=== PATIENT | female | born 1995 | race Caucasian/White ===

== ENCOUNTER 2016-08-03 20:46 | Emergency (ER) | payer OTHER ==
[2016-08-03 21:00] VITALS: BP 133/82; PULSE 86; RESP 18; TEMP 98
--- NOTE | 2016-08-03 21:18 | ED ---
General Adult HPI - General Chief complaint: Extremity Injury, Upper Stated complaint: Shoulder Pain Time Seen by Provider: 08/03/16 21:03 Source: patient, RN notes reviewed Mode of arrival: ambulatory Limitations: no limitations - History of Present Illness Initial comments: This is a 20-year-old female who presents with left shoulder pain since last night. Patient states she has a history of a humeral head fracture approximately 8 months ago. Patient states she was supposed to have surgery on this shoulder but she never did. Patient states she has limited range of motion to the left upper extremity ever since this injury. Patient reports increased pain to the left shoulder after picking up her 4-year-old daughter, who is approximately 30 pounds, last night. Patient states throughout the day she has noticed tingling to the left shoulder and some pain in the left clavicle. Patient also feels a pinching sensation in the left armpit. Patient denies any numbness/tingling or weakness to the left hand or forearm. Patient denies any neck pain. Patient denies any recent fever, chills, shortness breath , chest pain, abdominal pain, nausea/vomiting/diarrhea, back pain, hematuria, headache, or visual changes, or any other complaints. - Related Data Home Medications Medication Instructions Recorded Confirmed Multivitamins, Thera [Multivitamin] 1 tab PO DAILY 12/30/15 08/03/16 Albuterol Inhaler [Ventolin Hfa 2 puff INHALATION RT-Q6H PRN 08/03/16 08/03/16 Inhaler] Allergies Allergy/AdvReac Type Severity Reaction Status Date / Time adhesive tape Allergy Rash/Hives Verified 08/03/16 21:17 Review of Systems ROS Statement: Those systems with pertinent positive or pertinent negative responses have been documented in the HPI. ROS Other: All systems not noted in ROS Statement are negative. Past Medical History Past Medical History: No Reported History Additional Past Medical History / Comment(s): lump in right breast History of Any Multi-Drug Resistant Organisms: None Reported Past Surgical History: Orthopedic Surgery Additional Past Surgical History / Comment(s): Right growth plate, double lumpectomy removed Additional Past Anesthesia/Blood Transfusion Reaction / Comment(s): STATES HE HAD HYPOTENSION AFTER HER EPIDURAL, WHEN SHE DELIVERED HER DAUGHTER. Past Psychological History: Anxiety Smoking Status: Current every day smoker Past Alcohol Use History: None Reported Additional Past Alcohol Use History / Comment(s): SMOKED FOR: 4-5YR. PPD: .5 Past Drug Use History: None Reported - Past Family History Father Family Medical History: Cancer Additional Family Medical History / Comment(s): LIVER CANCER. Mother Family Medical History: Thyroid Disorder General Exam - General Exam Comments Initial Comments: General: The patient is awake and alert, in no distress, and does not appear acutely ill. Neck: There is no posterior cervical midline tenderness. The neck is supple, there is no tenderness or JVD. Cardiovascular: There is a regular rate and rhythm. No murmur, rub or gallop is appreciated. Respiratory: Lungs are clear to auscultation, respirations are non-labored, breath sounds are equal. No wheezes, stridor, rales, or rhonchi. Musculoskeletal: There is mild tenderness to palpation to the humeral end of the clavicle. Patient has tenderness to the axillary area with no swelling, ecchymosis or lumps felt. Patient states she can feel pressure to the left proximal upper extremity but does not feel any pain with palpation. Sensation intact. Patient's brachial and radial pulses are 2+ bilaterally and capillary refill is normal at less than 2 seconds. Patient has limited range of motion of the left upper extremity to approximately 90, but patient states this is chronic for her. Patient's strength is 5/5. Patient has normal coloring to bilateral upper extremities. Neurological: A&O x 3. CN II-XII intact, There are no obvious motor or sensory deficits. Coordination appears grossly intact. Speech is normal. Skin: Skin is warm and dry and no rashes or lesions are noted. Psychiatric: Normal mood and affect. Limitations: no limitations Course Vital Signs 08/03/16 20:57 Temperature 98.0 F Pulse Rate 86 Respiratory 18 Rate Blood Pressure 133/82 O2 Sat by Pulse 100 Oximetry Medical Decision Making - Medical Decision Making This is a 20-year-old female with complaints of left shoulder pain after lifting her daughter. On physical exam there is mild tenderness to palpation to the humeral end of the clavicle. Patient has tenderness to the axillary area with no swelling, ecchymosis or lumps felt. Patient states she can feel pressure to the left proximal upper extremity but does not feel any pain with palpation. Sensation intact. Patient's brachial and radial pulses are 2+ bilaterally and capillary refill is normal at less than 2 seconds. Patient has limited range of motion of the left upper extremity to approximately 90, but patient states this is chronic for her. Patient's strength is 5/5. Patient has normal coloring to bilateral upper extremities. An x-ray of the left shoulder was done and reviewed showing: Negative left shoulder exam. No change. Reported by Dr. Carrillo. I discussed the results with patient. Discussed that she may have strained her left shoulder when she picked up her daughter. Discussed rest, ice and Tylenol and/or Motrin for pain. Patient states she has a follow-up with the orthopedic doctor coming up. I discussed return parameters and that the patient should follow-up with her primary care physician in one to 2 days or return to the [facility] for any worsening symptoms or for any further concerns. Patient was receptive to this plan and patient will be discharged home. I discussed this case the attending physician Dr. Verdin who agrees with plan as stated above. Disposition Clinical Impression: Left shoulder strain Disposition: HOME SELF-CARE Condition: Good Instructions: Shoulder Pain (ED) Additional Instructions: Please rest, ice, elevate and use Tylenol and/or Motrin for pain. Please avoid lifting anything that causes increased pain in the left shoulder until symptoms improve. Please follow-up with family doctor in the next 2 days of symptoms have not improved. Please return to emergency room if the symptoms increase or worsen or for any other concerns. Referrals: Jose Duke MD [Primary Care Provider] - 1-2 days Time of Disposition: 21:50
--- NOTE | 2016-08-03 21:47 | XR ---
EXAMINATION TYPE: XR shoulder complete LT DATE OF EXAM: 08/03/2016 9:21 PM COMPARISON: 11/18/2015 HISTORY: Shoulder pain TECHNIQUE: 3 views FINDINGS: I see no fracture nor dislocation. Glenohumeral joint is intact. There are no pathologic ca lcifications. IMPRESSION: Negative left shoulder exam. No change.
== END 2016-08-03 22:01 | disposition home or self-care (01) ==
LOC: EC 20:46
DX: S46.912A Strain of unspecified muscle, fascia and tendon at shoulder and upper arm level, left arm, initial encounter (principal); X58.XXXA Exposure to other specified factors, initial encounter; Z91.048 Other nonmedicinal substance allergy status; Z87.81 Personal history of (healed) traumatic fracture; F17.200 Nicotine dependence, unspecified, uncomplicated
CPT/HCPCS: 99283

== ENCOUNTER 2017-06-11 16:03 | Emergency (ER) | payer OTHER ==
[2017-06-11 16:08] VITALS: RESP 18
[2017-06-11 16:38] LABS: Basophils % (A) 1 %; Eosinophils % (A) 1 %; HCT 42.7 % (34.0-46.0); HGB 14.1 gm/dL (11.4-16.0); Lymphocytes # (A) 1.6 k/uL (1.0-4.8); Lymphocytes % (A) 24 %; MCHC 32.9 g/dL (31.0-37.0); Mean Platelet Volume 6.8; Monocytes # (A) 0.3 k/uL (0-1.0); Monocytes % (A) 5 %; Neutrophils # (A) 4.8 k/uL (1.3-7.7); Neutrophils % (A) 69 %; Platelet Count 346 k/uL (150-450); RBC 4.55 m/uL (3.80-5.40); RDW 12.5 % (11.5-15.5); WBC 6.9 k/uL (3.8-10.6)
[2017-06-11 16:50] LABS: Anion Gap 11 mmol/L; Blood Urea Nitrogen 12 mg/dL (7-17); Calcium 9.6 mg/dL (8.4-10.2); Carbon Dioxide 26 mmol/L (22-30); Chloride 105 mmol/L (98-107); Glucose 96 mg/dL (74-99); Potassium 3.8 mmol/L (3.5-5.1); Sodium 142 mmol/L (137-145)
[2017-06-11 17:17] LABS: HCG,Quantitative Serum 2.9 mIU/mL
[2017-06-11 17:18] VITALS: BP 110/65; PULSE 71; TEMP 98.4
--- NOTE | 2017-06-11 17:20 | US ---
EXAMINATION TYPE: US OB <=14 wks transvag DATE OF EXAM: 06/11/2017 COMPARISON: NONE CLINICAL HISTORY: Pain. bleeding with EXAM PERFORMED: Transvaginal (TV) and Transabdominal (TA) EXAM MEASUREMENTS: GESTATIONAL AGE / DATING Physician Established: Not yet established Dates by LMP: ( 6 weeks/6 days) EDC: 01/29/2018 Dates by First Scan: No previous this is first scan Dates by Current Scan for: No IUP seen at this time MATERNAL ANATOMY Uterus: 8.5 x 4.0 x 5.6 cm Right Ovary: 2.8 x 1.4 x 3.2 cm Left Ovary: 2.5 x 1.7 x 3.1 cm Post CDS / Adnexa: wnl Presence of free fluid: none GESTATION / SURVEY CRL: not identified MSD: not identified Yolk Sac (normal less than 6mm): not identified Date of LMP: 04/24/2017 Beta HcG (if available): not available at time of exam patient is bleeding heavily, no sign of an IUP, no decidual reaction appreciated, probable miscarriag e. IMPRESSION: The uterus is empty. No evidence of ectopic . No adnexal mass.
--- NOTE | 2017-06-11 17:34 | ED ---
Female Urogenital HPI - General Chief complaint: Vaginal Bleeding Stated complaint: Bleeding and Time Seen by Provider: 06/11/17 16:17 Source: patient, RN notes reviewed Mode of arrival: ambulatory Limitations: no limitations - History of Present Illness Initial comments: 21-year-old female presented emergency department dept for vaginal bleeding in early . Patient states she found out she was last week. She did go to [facility] on Sunday with his told that her ECG level was low. Patient does have ultrasound shoulder much at the time. She started having some bleeding last night and has worsened today. She states it feels like normal menstrual cycle. She denies any severe abdominal pain denies fever, chills. Patient is A0. 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 Patient offers no other complaints. Last Menstrual Period: 04/24/17 - Related Data Home Medications Medication Instructions Recorded Confirmed Pnv,Calcium 72/Iron/Folic Acid 1 tab PO DAILY 06/11/17 06/11/17 [ Plus Tablet] Allergies Allergy/AdvReac Type Severity Reaction Status Date / Time adhesive tape Allergy Rash/Hives Verified 06/11/17 16:13 Review of Systems ROS Statement: Those systems with pertinent positive or pertinent negative responses have been documented in the HPI. ROS Other: All systems not noted in ROS Statement are negative. Past Medical History Past Medical History: No Reported History Additional Past Medical History / Comment(s): lump in right breast History of Any Multi-Drug Resistant Organisms: None Reported Past Surgical History: Orthopedic Surgery Additional Past Surgical History / Comment(s): Right growth plate, double lumpectomy removed Additional Past Anesthesia/Blood Transfusion Reaction / Comment(s): STATES HE HAD HYPOTENSION AFTER HER EPIDURAL, WHEN SHE DELIVERED HER DAUGHTER. Past Psychological History: Anxiety Smoking Status: Current every day smoker Past Alcohol Use History: None Reported Past Drug Use History: None Reported - Past Family History Father Family Medical History: Cancer Additional Family Medical History / Comment(s): LIVER CANCER. Mother Family Medical History: Thyroid Disorder General Exam Limitations: no limitations General appearance: alert, in no apparent distress Head exam: Present: atraumatic, normocephalic, normal inspection Respiratory exam: Present: normal lung sounds bilaterally. Absent: respiratory distress, wheezes, rales, rhonchi, stridor Cardiovascular Exam: Present: regular rate, normal rhythm, normal heart sounds. Absent: systolic murmur, diastolic murmur, rubs, gallop, clicks GI/Abdominal exam: Present: soft, normal bowel sounds. Absent: distended, tenderness, guarding, rebound, rigid Course Vital Signs 06/11/17 06/11/17 16:05 17:17 Temperature 97.1 F L 98.4 F Pulse Rate 81 71 Respiratory 18 18 Rate Blood Pressure 126/78 110/65 O2 Sat by Pulse 100 99 Oximetry Medical Decision Making - Medical Decision Making 21-year-old female presented for vaginal bleeding in early . Patient appears to be having a miscarriage. Patient did find her ECG was only 18 on Sunday and is currently 2.9. I did explain that hCG levels not rising appropriately that she is having bleeding and ultrasound is negative at this time. She is to follow-up with her PCP or JOURNEY[employer] PRESS OPERATOR for recheck and return for any worsening symptoms. - Lab Data Result diagrams: 06/11/17 16:22 06/11/17 16:22 Lab Results 06/11/17 06/11/17 06/11/17 Range/Units 16:22 16:22 16:22 WBC 6.9 (3.8-10.6) k/uL RBC 4.55 (3.80-5.40) m/uL Hgb 14.1 (11.4-16.0) gm/dL Hct 42.7 (34.0-46.0) % MCV 94.0 (80.0-100.0) fL MCH 31.0 (25.0-35.0) pg MCHC 32.9 (31.0-37.0) g/dL RDW 12.5 (11.5-15.5) % Plt Count 346 (150-450) k/uL Neutrophils % 69 % Lymphocytes % 24 % Monocytes % 5 % Eosinophils % 1 % Basophils % 1 % Neutrophils # 4.8 (1.3-7.7) k/uL Lymphocytes # 1.6 (1.0-4.8) k/uL Monocytes # 0.3 (0-1.0) k/uL Eosinophils # 0.0 (0-0.7) k/uL Basophils # 0.0 (0-0.2) k/uL Sodium 142 (137-145) mmol/L Potassium 3.8 (3.5-5.1) mmol/L Chloride 105 (98-107) mmol/L Carbon Dioxide 26 (22-30) mmol/L Anion Gap 11 mmol/L BUN 12 (7-17) mg/dL Creatinine 0.60 (0.52-1.04) mg/dL Est GFR (MDRD) Af Amer >60 (>60 ml/min/1.73 sqM) Est GFR (MDRD) Non-Af >60 (>60 ml/min/1.73 sqM) Glucose 96 (74-99) mg/dL Calcium 9.6 (8.4-10.2) mg/dL HCG, Quant 2.9 mIU/mL Blood Type O Positive Blood Type Recheck O Pos Disposition Clinical Impression: Miscarriage Disposition: HOME SELF-CARE Condition: Stable Instructions: Miscarriage (ED) Additional Instructions: Please return to the Emergency Department if symptoms worsen or any other concerns. Referrals: Jose Duke MD [Primary Care Provider] - 1-2 days Time of Disposition: 17:34
== END 2017-06-11 17:39 | disposition home or self-care (01) ==
LOC: EC 16:03
DX: O03.9 Complete or unspecified spontaneous abortion without complication (principal); O99.330 Smoking (tobacco) complicating pregnancy, unspecified trimester; F17.200 Nicotine dependence, unspecified, uncomplicated; Z79.899 Other long term (current) drug therapy; Z91.09 Other allergy status, other than to drugs and biological substances; Z3A.00 Weeks of gestation of pregnancy not specified
CPT/HCPCS: 36415; 76801; 76817; 80048; 84702; 85025; 86900; 86901; 99284

== ENCOUNTER 2017-10-05 22:42 | Emergency (ER) | payer OTHER ==
[2017-10-05 22:52] VITALS: RESP 18
--- NOTE | 2017-10-06 00:31 | ED ---
Female Urogenital HPI - General Chief complaint: Vaginal Bleeding Stated complaint: Vaginal Bleeding 16wks Preg Time Seen by Provider: 10/05/17 23:55 Source: patient, RN notes reviewed Mode of arrival: ambulatory Limitations: no limitations - History of Present Illness Initial comments: This is a 22-year-old female, currently 16 weeks who presents to the emergency department with chief complaint of cramping and vaginal bleeding. Patient states that she sees Dr. Marily Menard as her TIPPLE SUPERVISOR. She states that she does take Dunn, weekly injection to prevent early labor. She states that today she developed some low back cramping and vaginal bleeding. She states that the bleeding has been consistent for the past 2 hours. She does state that she had an ultrasound performed at 10 weeks. She denies any significant abdominal pain, nausea or vomiting, diarrhea or constipation. She denies fevers or chills. She denies dysuria or hematuria. She does state that 1 week before getting she had a miscarriage. She states that at that time she was told her blood type is O+. Last Menstrual Period: 06/10/17 - Related Data Home Medications Medication Instructions Recorded Confirmed Pnv,Calcium 72/Iron/Folic Acid 1 tab PO DAILY 06/11/17 08/23/17 [ Plus Tablet] Previous Rx's Medication Instructions Recorded Cephalexin [Keflex] 500 mg PO Q12HR #20 cap 10/06/17 Allergies Allergy/AdvReac Type Severity Reaction Status Date / Time adhesive tape Allergy Rash/Hives Verified 10/05/17 22:52 Review of Systems ROS Statement: Those systems with pertinent positive or pertinent negative responses have been documented in the HPI. ROS Other: All systems not noted in ROS Statement are negative. Past Medical History Past Medical History: No Reported History Additional Past Medical History / Comment(s): lump in right breast, UTI, hypotension History of Any Multi-Drug Resistant Organisms: None Reported Past Surgical History: Orthopedic Surgery Additional Past Surgical History / Comment(s): Right growth plate, double lumpectomy removed Additional Past Anesthesia/Blood Transfusion Reaction / Comment(s): STATES HE HAD HYPOTENSION AFTER HER EPIDURAL, WHEN SHE DELIVERED HER DAUGHTER. Past Psychological History: Anxiety Smoking Status: Former smoker Past Alcohol Use History: None Reported Past Drug Use History: None Reported - Past Family History Father Family Medical History: Cancer Additional Family Medical History / Comment(s): LIVER CANCER. Mother Family Medical History: Thyroid Disorder General Exam - General Exam Comments Initial Comments: General: Awake and alert, well-developed; in no apparent distress. HEENT: Head atraumatic, normocephalic. Pupils are equal, round and reactive to light. Extraocular movements intact. Oropharynx moist without erythema or exudate. Neck: Supple. Normal ROM. Cardiovascular: Regular rate and rhythm. No murmurs, rubs or gallops. Chest symmetrical. Respiratory: Lungs clear to auscultation bilaterally. No wheezes, rales or rhonchi. Normal respiratory effort with no use of accessory muscles. Abdomen: Soft, non-tender, non-distended. No rigidity, rebound or guarding. Normal bowel sounds in all 4 quadrants. Musculoskeletal: Normal ROM, no tenderness bilateral upper and lower extremities. Ambulating normally. Skin: [place], warm and dry without rashes or lesions. Neurological: Alert and oriented x3. CN II-XII grossly intact. Speech is fluent and answers are appropriate. No focal neuro deficits. Psychiatric: Normal mood and affect. No overt signs of depression or anxiety noted. Limitations: no limitations Course Vital Signs 10/05/17 10/06/17 22:50 00:52 Temperature 100.3 F H 97.9 F Pulse Rate 120 H 89 Respiratory 18 Rate Blood Pressure 115/72 105/63 O2 Sat by Pulse 100 99 Oximetry Medical Decision Making - Medical Decision Making This is a 22-year-old female who presented to the emergency department with chief complaint of vaginal bleeding. Patient currently 16 weeks . There was record of an ultrasound performed on August 23 that revealed a viable intrauterine . heart tones were performed today and were between 136 and 150s. CBC was unremarkable. CMP revealed slightly elevated AST and ALT at 126 and 165 respectively. Recommended patient to follow up with her primary care provider to have CMP rechecked. Patient's blood type is O+ so did not need to receive a dose of RhoGAM. UA revealed trace blood, positive nitrates, large leukocyte esterase and 92 white blood cells. Patient will be treated with Keflex for a urinary tract infection. Serum hCG was 152,324. Vital signs are stable and patient is in no acute distress. She will be discharged home at this time. Recommended repeat serum hCG in 48 hours. Lab slip is provided. She is to follow up with her TIPPLE SUPERVISOR within 1-2 days. She is in agreement with plan and voices understanding. All questions were answered. - Lab Data Result diagrams: 10/06/17 00:23 10/06/17 00:23 Lab Results 10/06/17 10/06/17 10/06/17 Range/Units 00:23 00:23 00:23 WBC 8.9 (3.8-10.6) k/uL RBC 3.82 (3.80-5.40) m/uL Hgb 11.7 (11.4-16.0) gm/dL Hct 34.7 (34.0-46.0) % MCV 90.7 (80.0-100.0) fL MCH 30.7 (25.0-35.0) pg MCHC 33.9 (31.0-37.0) g/dL RDW 13.1 (11.5-15.5) % Plt Count 279 (150-450) k/uL Neutrophils % (Manual) 59 % Lymphocytes % (Manual) 33 % Monocytes % (Manual) 8 % Neutrophils # (Manual) 5.25 (1.3-7.7) k/uL Lymphocytes # (Manual) 2.94 (1.0-4.8) k/uL Monocytes # (Manual) 0.71 (0-1.0) k/uL Nucleated RBCs 0 (0-0) /100 WBC Manual Slide Review Performed Reactive Lymphocytes Present Sodium 136 L (137-145) mmol/L Potassium 4.2 (3.5-5.1) mmol/L Chloride 103 (98-107) mmol/L Carbon Dioxide 22 (22-30) mmol/L Anion Gap 11 mmol/L BUN 11 (7-17) mg/dL Creatinine 0.60 (0.52-1.04) mg/dL Est GFR (CKD-EPI)AfAm >90 (>60 ml/min/1.73 sqM) Est GFR (CKD-EPI)NonAf >90 (>60 ml/min/1.73 sqM) Glucose 78 (74-99) mg/dL Calcium 8.9 (8.4-10.2) mg/dL Total Bilirubin 0.5 (0.2-1.3) mg/dL AST 126 H (14-36) U/L ALT 165 H (9-52) U/L Alkaline Phosphatase 98 (38-126) U/L Total Protein 6.3 (6.3-8.2) g/dL Albumin 3.6 (3.5-5.0) g/dL Urine Color Urine Appearance (Clear) Urine pH (5.0-8.0) Ur Specific Vanderbilt (1.001-1.035) Urine Protein (Negative) Urine Glucose (UA) (Negative) Urine Ketones (Negative) Urine Blood (Negative) Urine Nitrite (Negative) Urine Bilirubin (Negative) Urine Urobilinogen (<2.0) mg/dL Ur Leukocyte Esterase (Negative) Urine WBC (0-5) /hpf Ur Squamous Epith Cells (0-4) /hpf Urine Mucus (None) /hpf Blood Type O Positive Blood Type Recheck No 10/06/17 Range/Units 00:23 WBC (3.8-10.6) k/uL RBC (3.80-5.40) m/uL Hgb (11.4-16.0) gm/dL Hct (34.0-46.0) % MCV (80.0-100.0) fL MCH (25.0-35.0) pg MCHC (31.0-37.0) g/dL RDW (11.5-15.5) % Plt Count (150-450) k/uL Neutrophils % (Manual) % Lymphocytes % (Manual) % Monocytes % (Manual) % Neutrophils # (Manual) (1.3-7.7) k/uL Lymphocytes # (Manual) (1.0-4.8) k/uL Monocytes # (Manual) (0-1.0) k/uL Nucleated RBCs (0-0) /100 WBC Manual Slide Review Reactive Lymphocytes Sodium (137-145) mmol/L Potassium (3.5-5.1) mmol/L Chloride (98-107) mmol/L Carbon Dioxide (22-30) mmol/L Anion Gap mmol/L BUN (7-17) mg/dL Creatinine (0.52-1.04) mg/dL Est GFR (CKD-EPI)AfAm (>60 ml/min/1.73 sqM) Est GFR (CKD-EPI)NonAf (>60 ml/min/1.73 sqM) Glucose (74-99) mg/dL Calcium (8.4-10.2) mg/dL Total Bilirubin (0.2-1.3) mg/dL AST (14-36) U/L ALT (9-52) U/L Alkaline Phosphatase (38-126) U/L Total Protein (6.3-8.2) g/dL Albumin (3.5-5.0) g/dL Urine Color Yellow Urine Appearance Cloudy H (Clear) Urine pH 6.0 (5.0-8.0) Ur Specific Vanderbilt 1.013 (1.001-1.035) Urine Protein Negative (Negative) Urine Glucose (UA) Negative (Negative) Urine Ketones Negative (Negative) Urine Blood Trace H (Negative) Urine Nitrite Positive H (Negative) Urine Bilirubin Negative (Negative) Urine Urobilinogen <2.0 (<2.0) mg/dL Ur Leukocyte Esterase Large H (Negative) Urine WBC 92 H (0-5) /hpf Ur Squamous Epith Cells 5 H (0-4) /hpf Urine Mucus Many H (None) /hpf Blood Type Blood Type Recheck Disposition Clinical Impression: Threatened , UTI (urinary tract infection), Elevated liver enzymes Disposition: HOME SELF-CARE Condition: Good Instructions: Threatened Miscarriage (ED), Urinary Tract Infection in (ED) Additional Instructions: Please have serum hCG repeated in 48 hours. Please follow up with your TIPPLE SUPERVISOR within 1-2 days. Please follow-up with your primary care provider regarding elevated liver enzymes. Please take medications as prescribed. Please follow up with primary care provider within 1-2 days. Return to emergency department if symptoms should worsen or any concerns arise. Prescriptions: Cephalexin [Keflex] 500 mg PO Q12HR #20 cap Is patient prescribed a controlled substance at d/c from ED?: No Referrals: Jose Duke MD [Primary Care Provider] - 1-2 days Time of Disposition: 03:00
[2017-10-06 00:46] LABS: Appearance,Urine Cloudy (Clear); Bilirubin,Urine Negative (Negative); Blood,Urine Trace (Negative); Color,Urine Yellow; Glucose,Urine (UA) Negative (Negative); HCT 34.7 % (34.0-46.0); HGB 11.7 gm/dL (11.4-16.0); Ketones,Urine Negative (Negative); Leukocyte Esterase,Urine Large (Negative); MCH 30.7 pg (25.0-35.0); MCHC 33.9 g/dL (31.0-37.0); MCV 90.7 fL (80.0-100.0); Mean Platelet Volume 6.7; Mucus,Urine Many /hpf; Nitrite,Urine Positive (Negative); Platelet Count 279 k/uL (150-450); Protein,Urine Negative (Negative); RBC 3.82 m/uL (3.80-5.40); RDW 13.1 % (11.5-15.5); Specific Gravity,Urine 1.013 (1.001-1.035); Squamous Epithelial Cell,Urine 5 /hpf (0-4); Urobilinogen,Urine <2.0 mg/dL (<2.0); WBC 8.9 k/uL (3.8-10.6); WBC,Urine 92 /hpf (0-5)
[2017-10-06 01:01] LABS: ALT 165 U/L (9-52); AST 126 U/L (14-36); Albumin 3.6 g/dL (3.5-5.0); Alkaline Phosphatase 98 U/L (38-126); Anion Gap 11 mmol/L; Blood Urea Nitrogen 11 mg/dL (7-17); Calcium 8.9 mg/dL (8.4-10.2); Carbon Dioxide 22 mmol/L (22-30); Chloride 103 mmol/L (98-107); Glucose 78 mg/dL (74-99); Potassium 4.2 mmol/L (3.5-5.1); Sodium 136 mmol/L (137-145); Total Bilirubin 0.5 mg/dL (0.2-1.3); Total Protein 6.3 g/dL (6.3-8.2)
[2017-10-06 01:17] LABS: Lymphocytes # (M) 2.94 k/uL (1.0-4.8); Monocytes # (M) 0.71 k/uL (0-1.0); Neutrophils # (M) 5.25 k/uL (1.3-7.7); Neutrophils % (M) 59 %; Nucleated Red Blood Cells 0 /100 WBC (0-0); Reactive Lymphocytes Present; Total Cells Counted 100
[2017-10-06 03:08] VITALS: BP 103/59; PULSE 62; TEMP 98.4
== END 2017-10-06 03:11 | disposition home or self-care (01) ==
LOC: EC 22:42
DX: O20.0 Threatened abortion (principal); O23.42 Unspecified infection of urinary tract in pregnancy, second trimester; O99.89 Other specified diseases and conditions complicating pregnancy, childbirth and the puerperium; R74.8 Abnormal levels of other serum enzymes; Z3A.16 16 weeks gestation of pregnancy; Z87.891 Personal history of nicotine dependence; Z91.048 Other nonmedicinal substance allergy status
CPT/HCPCS: 36415; 80053; 81001; 84702; 85025; 86900; 86901; 87077; 87086; 87186; 99284

== ENCOUNTER 2018-01-22 16:33 | Outpatient (CLI) | payer OTHER ==
[2018-01-22 17:27] VITALS: BP 135/80; PULSE 109; RESP 18; TEMP 98.7
[2018-01-22] MEDS ORDERED: SODIUM CHLORIDE 0.9% 500 ML IV ONE (17:28)
[2018-01-22] MEDS: NIFEdipine 10 MG CAP PO PRN ×3 (17:43→18:31)
[2018-01-22] MEDS ORDERED: SODIUM CHLORIDE 0.9% 1,000 ML IV SCH (18:00)
--- NOTE | 2018-01-22 19:09 | US ---
EXAMINATION TYPE: US OB TV Cervical Measurement DATE OF EXAM: 01/22/2018 COMPARISON: NONE REASON FOR EXAM: Per Ordering Physician?this transvaginal scan is to assess the CERVICAL LENGTH for incompetence or fu nneling. GESTATIONAL AGE / DATING Physician Established: (32 weeks/1 days) EDC: 03/18/2018 MATERNAL/ SURVEY Ultrasound evidence of shortened cervix? Cervix measures 2.3 cm in length. Ultrasound evidence of funneling? No. HEART RATE: 155 bpm RHYTHM: Normal. IMPRESSION: 1. Cervix measures 2.3 cm in length. 2. cardiac activity measured at 155 bpm.
[2018-01-22] MEDS ORDERED: TERBUTALINE 1 MG/ML VIAL SQ STA (19:32)
--- NOTE | 2018-02-13 00:15 | P.MSEPDOC ---
Presenting Problems - Arrival Data Date of Arrival on Unit: 01/22/18 Time of Arrival on Unit: 16:33 Mode of Transport: Portable - Complaint OB-Reason for Admission/Chief Complaint: Possible Onset of Labor Comment: ctx since this am Medical History - Information : 3 Para: 1 Term: 1 : 0 Abortions: Spontaneous or Elective: 1 Number of Living Children: 1 - Gestational Age Gestational Age by EDDIE (wks/days): 32 Weeks and 1 Days - History Comment: previous labor stopped with magnesium and delivered at 38 weeks Review of Systems - Review of Systems Constitutional: No problems Breast: No problems ENT: No problems Cardiovascular: No problems Respiratory: No problems Gastrointestinal: No problems Genitourinary: No problems Musculoskeletal: No problems Neurological: No problems Skin: No problems Vital Signs - Temperature Temperature: 98.7 F Temperature Source: Temporal Artery Scan - Pulse Right Pulse Rate: 109 Pulse Assessment Method: Automatic Cuff - Respirations Respiratory Rate: 18 Oxygen Delivery Method: Room Air - Blood Pressure Right Arm Sitting Blood Pressure: 135/80 Blood Pressure Mean: 98 Blood Pressure Source: Automatic Cuff Medical Screen Scoring (Pre) - Cervical Exam Dilation: 1-3 cm = 1 Membranes: Intact - Uterine Contractions Frequency: < 36 weeks = 6 Duration: > 40 seconds = 2 - Pain Assessment Pain Location and Character: Abdomen Pain Scale Used: Numeric (1 - 10) Pain Intensity: 6 Pain Description: *Acute, Tightness Pain Frequency: Intermittent Pain Duration: 6 Pain Duration Units: Hours Pain Behavior: None Exhibited Pain Aggravating Factors: Contractions - Assessment Baseline FHR: 140 Heart Rate - NICHD Category: Category I (Normal) = 0 NST: Reactive - Total Score Total Score (Pre): 9 - Level of Risk Level of Risk: Medium (6-9) Physician Notification (Pre) - Physician Notified Physician Notified Date: 01/22/18 Physician Notified Time: 17:20 Spoke With: Marlene New Order Received: Yes - Notification Comment Comment: IV 500ml bolus, procardia protocol, transvag for cervical length Disposition - Disposition OB Disposition: Triage Discharge Date: 01/22/18 Discharge Time: 20:10 I agree with the RN Medical Screening Exam: No Physician's MSE Comment: Incomplete documentation Risk & Benefit of care provided described in d/c instruction: No Diagnosis: FALSE LABOR BEFORE 37 COMPLETED WEEKS OF GEST, THIRD TRI
== END 2018-01-22 20:10 | disposition home or self-care (01) ==
LOC: FBPOP 16:33
PROVIDERS: ATTEND Obstetrics & Gynecology
DX: O47.03 False labor before 37 completed weeks of gestation, third trimester (principal); Z3A.32 32 weeks gestation of pregnancy
CPT/HCPCS: 59025; 96360; 96361; 96372; 82731; 76817; G0463; J3105; 99214

== ENCOUNTER 2018-03-07 02:45 | Outpatient (CLI) | payer OTHER ==
[2018-03-07 03:25] VITALS: BP 141/75; PULSE 70; RESP 16; TEMP 97
--- NOTE | 2018-03-15 08:26 | P.MSEPDOC ---
Presenting Problems - Arrival Data Date of Arrival on Unit: 03/07/18 Time of Arrival on Unit: 02:45 Mode of Transport: Wheelchair - Complaint OB-Reason for Admission/Chief Complaint: Possible Onset of Labor Comment: contx that started at 2100, 4 minutes apart. Medical History - Information : 3 Para: 1 Term: 1 : 0 Abortions: Spontaneous or Elective: 1 Number of Living Children: 1 - Gestational Age Gestational Age by EDDIE (wks/days): 38 Weeks and 1 Days - History Comment: labor with this and last. Review of Systems - Review of Systems Constitutional: No problems Breast: No problems ENT: No problems Cardiovascular: No problems Respiratory: No problems Gastrointestinal: No problems Genitourinary: No problems Musculoskeletal: No problems Neurological: No problems Skin: No problems Vital Signs - Temperature Temperature: 97.0 F Temperature Source: Temporal Artery Scan - Pulse Right Sitting Brachial Pulse Rate: 70 Pulse Assessment Method: Automatic Cuff - Respirations Respiratory Rate: 16 Oxygen Delivery Method: Room Air - Blood Pressure Right Arm Sitting Blood Pressure: 141/75 Blood Pressure Mean: 97 Blood Pressure Source: Automatic Cuff Medical Screen Scoring (Pre) - Cervical Exam Dilation: 1-3 cm = 1 Effacement: More than 50% = 2 Membranes: Intact - Uterine Contractions Frequency: > or = 36 weeks =2 Duration: > 40 seconds = 2 Intensity: N/A - Maternal Vital Signs Maternal Temperature: N/A Signs of Preeclampsia: N/A Maternal Respirations: N/A - Pain Assessment Pain Location and Character: Lower, Abdomen Pain Scale Used: Numeric (1 - 10) Pain Intensity: 7 Pain Management Goal: 5 Pain Description: *Acute, Cramping Pain Radiation Location: n/a Pain Frequency: Intermittent Pain Duration: 6 Pain Duration Units: Hours Pain Behavior: Facial Grimacing, Vocalization Pain Aggravating Factors: Contractions - Maternal Trauma Maternal Trauma: N/A - Assessment Baseline FHR: 120 Heart Rate - NICHD Category: Category I (Normal) = 0 NST: Reactive Position: N/A Station: N/A - Total Score Total Score (Pre): 7 - Level of Risk Level of Risk: Medium (6-9) Physician Notification (Pre) - Physician Notified Physician Notified Date: 03/07/18 Physician Notified Time: 04:25 Physician/Practitioner Notifed:: phoebe Spoke With: pohebe New Order Received: Yes - Notification Comment Comment: d/c pt home with orders to f/u with her OB tomorrow. Disposition - Disposition OB Disposition: Discharge to home Discharge Date: 03/07/18 Discharge Time: 04:30 I agree with the RN Medical Screening Exam: Yes Risk & Benefit of care provided described in d/c instruction: Yes Diagnosis: FALSE LABOR AT OR AFTER 37 COMPLETED WEEKS OF GESTATION
== END 2018-03-07 04:30 | disposition home or self-care (01) ==
LOC: FBPOP 02:45
PROVIDERS: ATTEND Obstetrics & Gynecology
DX: O47.1 False labor at or after 37 completed weeks of gestation (principal); Z3A.38 38 weeks gestation of pregnancy
CPT/HCPCS: 59025; G0463; 99213

== ENCOUNTER 2018-12-07 15:09 | Emergency (ER) | payer OTHER ==
[2018-12-07] MEDS ORDERED: SODIUM CHLORIDE 0.9% 1,000 ML IV STA (15:40)
[2018-12-07 16:44] LABS: Appearance,Urine Cloudy (Clear); Bilirubin,Urine Negative (Negative); Blood,Urine Large (Negative); Color,Urine Yellow; Glucose,Urine (UA) Negative (Negative); Ketones,Urine Negative (Negative); Leukocyte Esterase,Urine Moderate (Negative); Mucus,Urine Few /hpf; Nitrite,Urine Negative (Negative); Protein,Urine Trace (Negative); RBC,Urine >182 /hpf (0-5); Specific Gravity,Urine 1.022 (1.001-1.035); Squamous Epithelial Cell,Urine 1 /hpf (0-4); Urobilinogen,Urine <2.0 mg/dL (<2.0); WBC,Urine 11 /hpf (0-5)
[2018-12-07 16:47] LABS: Basophils % (A) 0 %; Eosinophils # (A) 0.1 k/uL (0-0.7); Eosinophils % (A) 1 %; HCT 44.3 % (34.0-46.0); HGB 14.2 gm/dL (11.4-16.0); Lymphocytes # (A) 1.6 k/uL (1.0-4.8); Lymphocytes % (A) 24 %; MCH 30.2 pg (25.0-35.0); MCV 94.3 fL (80.0-100.0); Mean Platelet Volume 7.3; Monocytes # (A) 0.3 k/uL (0-1.0); Monocytes % (A) 4 %; Neutrophils # (A) 4.8 k/uL (1.3-7.7); Neutrophils % (A) 70 %; Platelet Count 313 k/uL (150-450); RBC 4.69 m/uL (3.80-5.40); RDW 14.6 % (11.5-15.5); WBC 6.8 k/uL (3.8-10.6)
[2018-12-07 16:56] LABS: ALT 21 U/L (9-52); AST 23 U/L (14-36); African American GFR (CKD) >90 (>60 ml/min/1.73 sqM); Albumin 4.6 g/dL (3.5-5.0); Alkaline Phosphatase 59 U/L (38-126); Anion Gap 9 mmol/L; Blood Urea Nitrogen 14 mg/dL (7-17); Calcium 9.7 mg/dL (8.4-10.2); Carbon Dioxide 24 mmol/L (22-30); Chloride 107 mmol/L (98-107); Glucose 89 mg/dL (74-99); Potassium 4.3 mmol/L (3.5-5.1); Sodium 140 mmol/L (137-145); Total Bilirubin 0.6 mg/dL (0.2-1.3); Total Protein 7.4 g/dL (6.3-8.2)
[2018-12-07 17:13] LABS: HCG,Quantitative Serum <2.4 mIU/mL
--- NOTE | 2018-12-07 17:21 | US ---
EXAMINATION TYPE: Ultrasound OB <= 14 week fetus DATE OF EXAM: 12/07/2018 5:04 PM COMPARISON: NONE CLINICAL HISTORY: 23-year-old female Pain. Pelvic cramping and bleeding, 5, para 2, miscarria ge 2 EXAM PERFORMED: Transabdominal (TA) FINDINGS: EXAM MEASUREMENTS: GESTATIONAL AGE / DATING Physician Established: (9 weeks/3 days) EDC: 07/09/2019 Dates by LMP: (9 weeks/3 days) EDC: 07/09/2019 Dates by First Scan: This is 1st scan Dates by Current Scan for: No IUP seen at this time MATERNAL ANATOMY Uterus: 7.9 x 4.4 x 5.3cm, anteverted, heterogeneous Right Ovary: 2.7 x 1.8 x 3.0cm Left Ovary: 3.0 x 1.8 x 2.0cm Post CDS / Adnexa: wnl Presence of free fluid: no Presence of corpus luteal cyst: not seen Presence of subchorionic bleed: no GESTATION / SURVEY IUP: No IUP seen at this time Date of LMP: 10/02/2018 Beta HcG (if available): Not available at time of exam IMPRESSION: No visualized intrauterine . Correlate with serial beta hCG and ultrasound follow-up as margy cated. Current differential considerations include failed , too early to visualize , and nonvisualized ectopic .
--- NOTE | 2018-12-07 18:03 | ED ---
General Adult HPI - General Chief complaint: Vaginal Bleeding Stated complaint: 9 wks , spotting Time Seen by Provider: 12/07/18 15:39 Source: patient, RN notes reviewed Mode of arrival: ambulatory Limitations: no limitations - History of Present Illness Initial comments: Manju is a 23-year-old female currently 9 weeks who presents to the emergency department for a chief complaint of vaginal bleeding. Patient states she had cramping earlier today and then started passing clots. States it feels like her last miscarriage. States she has had a positive Doppler for heart tones but has not had an ultrasound to confirm intrauterine . Denies nausea vomiting. Denies headache. She follows with a high risk PRINCIPAL QUALITY ENGINEER due to her history of endometriosis and frequent miscarriages. Denies any lightheadedness or headaches. Denies any dizziness.Patient has no other complaints at this time including shortness of breath, chest pain, abdominal pain, nausea or vomiting, headache, or visual changes. - Related Data Home Medications Medication Instructions Recorded Confirmed Pnv,Calcium 72/Iron/Folic Acid 1 tab PO DAILY 06/11/17 03/07/18 [ Plus Tablet] Previous Rx's Medication Instructions Recorded Cephalexin [Keflex] 500 mg PO Q12HR #20 cap 10/06/17 Allergies Allergy/AdvReac Type Severity Reaction Status Date / Time adhesive tape Allergy Rash/Hives Verified 12/07/18 15:20 Review of Systems ROS Statement: Those systems with pertinent positive or pertinent negative responses have been documented in the HPI. ROS Other: All systems not noted in ROS Statement are negative. Past Medical History Past Medical History: No Reported History Additional Past Medical History / Comment(s): lump in right breast, UTI, hypotension History of Any Multi-Drug Resistant Organisms: None Reported Past Surgical History: Orthopedic Surgery Additional Past Surgical History / Comment(s): Right growth plate, double lumpectomy removed Additional Past Anesthesia/Blood Transfusion Reaction / Comment(s): STATES HE HAD HYPOTENSION AFTER HER EPIDURAL, WHEN SHE DELIVERED HER DAUGHTER. Past Psychological History: Anxiety Smoking Status: Current some day smoker Past Alcohol Use History: None Reported Past Drug Use History: Marijuana - Past Family History Father Family Medical History: Cancer Additional Family Medical History / Comment(s): LIVER CANCER. Mother Family Medical History: Thyroid Disorder General Exam Limitations: no limitations General appearance: alert, in no apparent distress Head exam: Present: atraumatic, normocephalic, normal inspection Eye exam: Present: normal appearance, PERRL, EOMI. Absent: scleral icterus, co njunctival injection, periorbital swelling ENT exam: Present: normal exam, mucous membranes moist Neck exam: Present: normal inspection, full ROM. Absent: tenderness, meningismus, lymphadenopathy Respiratory exam: Present: normal lung sounds bilaterally. Absent: respiratory distress, wheezes, rales, rhonchi, stridor Cardiovascular Exam: Present: regular rate, normal rhythm, normal heart sounds. Absent: systolic murmur, diastolic murmur, rubs, gallop, clicks GI/Abdominal exam: Present: soft, normal bowel sounds. Absent: distended, tenderness, guarding, rebound, rigid External exam: Present: normal external exam. Absent: erythema, swelling, lesions, lacerations, ecchymosis Speculum exam: Present: vaginal bleeding (Minimal vaginal bleeding noted, no acute hemorrhage.). Absent: normal speculum exam, erythema, vaginal discharge, cervical discharge, foreign body, tissue, laceration By manual exam: Present: normal by manual exam. Absent: cervical motion tenderness, adnexal tenderness, adnexal mass, uterine enlargement, uterine tenderness Neurological exam: Present: alert, oriented X3 Psychiatric exam: Present: normal affect, normal mood Course Vital Signs 12/07/18 12/07/18 15:17 16:47 Temperature 98.3 F 98.3 F Pulse Rate 76 71 Respiratory 18 16 Rate Blood Pressure 132/86 119/82 O2 Sat by Pulse 97 98 Oximetry Medical Decision Making - Medical Decision Making Manju is a 23 year old female who presents to the emergency department for a chief complaint of vaginal bleeding. Patient is a female 9 weeks . Patient follows with the high school social studies tutor/GYN through [facility]. On exam patient has minimal vaginal bleeding noted but does state she was passing clots earlier. Hemoglobin is stable at 14.2. CMP is unremarkable. Urine does show blood likely secondary to vaginal bleeding. Blood type is O+. Ultrasound shows no visualized intrauterine . HCG Quant is negative. Patient s tates she did have a selective secondary to positive heart tones but was waiting until after 12 weeks to get her ultrasound. At this time denying any pain. Patient's hCG will be repeated in 2 days. Patient has close follow-up with high school social studies tutor/GYN. Patient will return here if she has any worsening symptoms. - Lab Data Result diagrams: 12/07/18 16:30 12/07/18 16:30 Lab Results 12/07/18 12/07/18 12/07/18 Range/Units 15:45 15:45 16:30 WBC (3.8-10.6) k/uL RBC (3.80-5.40) m/uL Hgb (11.4-16.0) gm/dL Hct (34.0-46.0) % MCV (80.0-100.0) fL MCH (25.0-35.0) pg MCHC (31.0-37.0) g/dL RDW (11.5-15.5) % Plt Count (150-450) k/uL Neutrophils % % Lymphocytes % % Monocytes % % Eosinophils % % Basophils % % Neutrophils # (1.3-7.7) k/uL Lymphocytes # (1.0-4.8) k/uL Monocytes # (0-1.0) k/uL Eosinophils # (0-0.7) k/uL Basophils # (0-0.2) k/uL Sodium (137-145) mmol/L Potassium (3.5-5.1) mmol/L Chloride (98-107) mmol/L Carbon Dioxide (22-30) mmol/L Anion Gap mmol/L BUN (7-17) mg/dL Creatinine (0.52-1.04) mg/dL Est GFR (CKD-EPI)AfAm (>60 ml/min/1.73 sqM) Est GFR (CKD-EPI)NonAf (>60 ml/min/1.73 sqM) Glucose (74-99) mg/dL Calcium (8.4-10.2) mg/dL Total Bilirubin (0.2-1.3) mg/dL AST (14-36) U/L ALT (9-52) U/L Alkaline Phosphatase (38-126) U/L Total Protein (6.3-8.2) g/dL Albumin (3.5-5.0) g/dL HCG, Quant mIU/mL Urine Color Yellow Urine Appearance Cloudy H (Clear) Urine pH 8.0 (5.0-8.0) Ur Specific [place] 1.022 (1.001-1.035) Urine Protein Trace H (Negative) Urine Glucose (UA) Negative (Negative) Urine Ketones Negative (Negative) Urine Blood Large H (Negative) Urine Nitrite Negative (Negative) Urine Bilirubin Negative (Negative) Urine Urobilinogen <2.0 (<2.0) mg/dL Ur Leukocyte Esterase Moderate H (Negative) Urine RBC >182 H (0-5) /hpf Urine WBC 11 H (0-5) /hpf Ur Squamous Epith Cells 1 (0-4) /hpf Urine Mucus Few H (None) /hpf Urine HCG, Qual Not Detected (Not Detectd) Blood Type O Positive Blood Type Recheck No 12/07/18 12/07/18 Range/Units 16:30 16:30 WBC 6.8 (3.8-10.6) k/uL RBC 4.69 (3.80-5.40) m/uL Hgb 14.2 (11.4-16.0) gm/dL Hct 44.3 (34.0-46.0) % MCV 94.3 (80.0-100.0) fL MCH 30.2 (25.0-35.0) pg MCHC 32.0 (31.0-37.0) g/dL RDW 14.6 (11.5-15.5) % Plt Count 313 (150-450) k/uL Neutrophils % 70 % Lymphocytes % 24 % Monocytes % 4 % Eosinophils % 1 % Basophils % 0 % Neutrophils # 4.8 (1.3-7.7) k/uL Lymphocytes # 1.6 (1.0-4.8) k/uL Monocytes # 0.3 (0-1.0) k/uL Eosinophils # 0.1 (0-0.7) k/uL Basophils # 0.0 (0-0.2) k/uL Sodium 140 (137-145) mmol/L Potassium 4.3 (3.5-5.1) mmol/L Chloride 107 (98-107) mmol/L Carbon Dioxide 24 (22-30) mmol/L Anion Gap 9 mmol/L BUN 14 (7-17) mg/dL Creatinine 0.61 (0.52-1.04) mg/dL Est GFR (CKD-EPI)AfAm >90 (>60 ml/min/1.73 sqM) Est GFR (CKD-EPI)NonAf >90 (>60 ml/min/1.73 sqM) Glucose 89 (74-99) mg/dL Calcium 9.7 (8.4-10.2) mg/dL Total Bilirubin 0.6 (0.2-1.3) mg/dL AST 23 (14-36) U/L ALT 21 (9-52) U/L Alkaline Phosphatase 59 (38-126) U/L Total Protein 7.4 (6.3-8.2) g/dL Albumin 4.6 (3.5-5.0) g/dL HCG, Quant <2.4 mIU/mL Urine Color Urine Appearance (Clear) Urine pH (5.0-8.0) Ur Specific [place] (1.001-1.035) Urine Protein (Negative) Urine Glucose (UA) (Negative) Urine Ketones (Negative) Urine Blood (Negative) Urine Nitrite (Negative) Urine Bilirubin (Negative) Urine Urobilinogen (<2.0) mg/dL Ur Leukocyte Esterase (Negative) Urine RBC (0-5) /hpf Urine WBC (0-5) /hpf Ur Squamous Epith Cells (0-4) /hpf Urine Mucus (None) /hpf Urine HCG, Qual (Not Detectd) Blood Type Blood Type Recheck Disposition Clinical Impression: Miscarriage, Vaginal bleeding during Disposition: HOME SELF-CARE Condition: Good Instructions (If sedation given, give patient instructions): Miscarriage (ED) Additional Instructions: Please have blood work repeated in 2 days. Please follow-up with your PRINCIPAL QUALITY ENGINEER on Sunday. If you're having any worsening symptoms or severe abdominal pain return immediately to the emergency department. Is patient prescribed a controlled substance at d/c from ED?: No Referrals: Jose Duke MD [Primary Care Provider] - 1-2 days Time of Disposition: 18:01
[2018-12-07 18:27] VITALS: BP 111/65; PULSE 78; RESP 18; TEMP 98
[2018-12-09 10:16] LABS: C. trachomatis,PCR Negative (Neg,Equiv); Chlamydia trachomatis Source Urine; N. gonorrhoeae,PCR Negative (Neg,Equiv); Neisseria Source Urine
== END 2018-12-07 18:25 | disposition home or self-care (01) ==
LOC: EC 15:09
DX: O03.9 Complete or unspecified spontaneous abortion without complication (principal); F17.200 Nicotine dependence, unspecified, uncomplicated; Z91.048 Other nonmedicinal substance allergy status
CPT/HCPCS: 36415; 76801; 80053; 81001; 81025; 84702; 85025; 86900; 86901; 87077; 87086; 87186; 87491; 87591; 96360; 99284

== ENCOUNTER → 2018-12-10 | Outpatient (CLI) | payer OTHER | LOC: LABWHC1 14:25 | PROVIDERS: ATTEND Physician Assistant Medical | DX: O03.9 Complete or unspecified spontaneous abortion without complication (principal) | CPT/HCPCS: 36415; 84702 ==

== ENCOUNTER 2019-02-05 16:18 | Emergency (ER) | payer OTHER ==
[2019-02-05 17:31] LABS: Basophils # (A) 0.1 k/uL (0-0.2); Basophils % (A) 1 %; Eosinophils # (A) 0.1 k/uL (0-0.7); Eosinophils % (A) 1 %; HCT 40.3 % (34.0-46.0); HGB 13.4 gm/dL (11.4-16.0); Lymphocytes # (A) 2.4 k/uL (1.0-4.8); Lymphocytes % (A) 34 %; MCH 30.6 pg (25.0-35.0); MCHC 33.3 g/dL (31.0-37.0); MCV 91.8 fL (80.0-100.0); Mean Platelet Volume 6.5; Monocytes # (A) 0.3 k/uL (0-1.0); Monocytes % (A) 5 %; Neutrophils # (A) 4.1 k/uL (1.3-7.7); Neutrophils % (A) 58 %; Platelet Count 374 k/uL (150-450); RBC 4.39 m/uL (3.80-5.40); RDW 13.2 % (11.5-15.5); WBC 7.1 k/uL (3.8-10.6)
[2019-02-05 17:40] LABS: ALT 17 U/L (9-52); AST 19 U/L (14-36); African American GFR (CKD) >90 (>60 ml/min/1.73 sqM); Albumin 4.7 g/dL (3.5-5.0); Alkaline Phosphatase 61 U/L (38-126); Anion Gap 11 mmol/L; Blood Urea Nitrogen 16 mg/dL (7-17); Calcium 9.8 mg/dL (8.4-10.2); Carbon Dioxide 23 mmol/L (22-30); Chloride 106 mmol/L (98-107); Glucose 72 mg/dL (74-99); Partial Thromboplastin Time 28.2 sec (22.0-30.0); Potassium 3.9 mmol/L (3.5-5.1); Prothrombin Time 10.8 sec (9.0-12.0); Sodium 140 mmol/L (137-145); Total Bilirubin 0.4 mg/dL (0.2-1.3); Total Protein 7.6 g/dL (6.3-8.2)
--- NOTE | 2019-02-05 18:05 | US ---
EXAMINATION TYPE: Transabdominal DATE OF EXAM: 02/05/2019 5:45 PM COMPARISON: NONE CLINICAL HISTORY: pain. Pt states Dr sent her to ER for Beta levels and US to R/O ectopic/ pt has his tory of multiple miscarriages, denies pain or bleeding at this time EXAM PERFORMED: Transabdominal (TA) EXAM MEASUREMENTS: GESTATIONAL AGE / DATING Physician Established: Not yet established Dates by LMP: (5 weeks/1 days) EDC: 10/07/2019 Dates by First Scan: No prior Dates by Current Scan for: (4 weeks/6 days) EDC: 10/09/2019 MATERNAL ANATOMY Uterus: 9.5 x 4.9 x 7.6 cm Right Ovary: 2.4 x 2.3 x 1.8 cm Left Ovary: 3.5 x 2.8 x 2.8 cm Post CDS / Adnexa: Small amount of free fluid right adnexa adjacent to right ovary Presence of corpus luteal cyst: Left ovary= 2.2 x 1.9 x 2.1 cm GESTATION / SURVEY CRL: Too early MSD: 0.4 cm (4 weeks/6 days) Yolk Sac (normal less than 6mm): Not visualized Date of LMP: 12/31/2018 Beta HcG (if available): Not available at this time Possible small gestational sac visualized within uterus versus pseudogestational sac Yolk sac and f etal pole not visualized--too early IMPRESSION: There is a small intramural endometrial fluid collection with a mean sac diameter of only 0.35 cm. Th is could represent early intrauterine , anembryonic , pseudogestational sac of ecto pic , or nonviable . No yolk sac or pole are yet visualized. Therefore follow -up ultrasound is recommended in 5-7 days with serial serum beta hCG trending.
--- NOTE | 2019-02-05 18:50 | ED ---
Female Urogenital HPI - General Chief complaint: Vaginal Bleeding Stated complaint: poss ectopic Time Seen by Provider: 02/05/19 16:25 Source: patient Mode of arrival: ambulatory Limitations: no limitations - History of Present Illness Initial comments: Patient is a 23 old female presents emergency department for repeat labs. The patient states that she is and currently . She does believe that she is around [address] Seymour out of [facility]. She has had previous history of ectopic and multiple miscarriages and therefore she has already established care with INSPECTOR AND CLERK. On Sunday she did have blood drawn. Her beta Quant was 1008. She reported that the ultrasound did not demonstrate an intrauterine . She was told to follow-up in 2 days to have repeat blood work and ultrasound performed. She states that she is asymptomatic at this time. Denies any abdominal cramping. No abnormal vaginal bleeding or discharge. Denies any nausea or vomiting. No back or flank pain. Denies any changes in her urination to include dysuria, hematuria or difficulty voiding. Denies any changes in her bowel movements include diarrhea, constipation, melanotic stools or hematochezia. Last menstrual cycle was December 31. There are no other alleviating, precipitating or modifying factors Last Menstrual Period: 01/05/19 - Related Data Home Medications Medication Instructions Recorded Confirmed Pnv,Calcium 72/Iron/Folic Acid 1 tab PO HS 06/11/17 02/05/19 [ Plus Tablet] Allergies Allergy/AdvReac Type Severity Reaction Status Date / Time adhesive tape Allergy Rash/Hives Verified 02/05/19 17:22 Review of Systems ROS Statement: Those systems with pertinent positive or pertinent negative responses have been documented in the HPI. ROS Other: All systems not noted in ROS Statement are negative. Past Medical History Past Medical History: No Reported History Additional Past Medical History / Comment(s): lump in right breast, UTI, hy potension History of Any Multi-Drug Resistant Organisms: None Reported Past Surgical History: Orthopedic Surgery Additional Past Surgical History / Comment(s): Right growth plate, double lumpectomy removed Additional Past Anesthesia/Blood Transfusion Reaction / Comment(s): STATES HE HAD HYPOTENSION AFTER HER EPIDURAL, WHEN SHE DELIVERED HER DAUGHTER. Past Psychological History: Anxiety Smoking Status: Current some day smoker Past Alcohol Use History: None Reported Past Drug Use History: Marijuana - Past Family History Father Family Medical History: Cancer Additional Family Medical History / Comment(s): LIVER CANCER. Mother Family Medical History: Thyroid Disorder General Exam Limitations: no limitations General appearance: alert, in no apparent distress Head exam: Present: atraumatic, normocephalic, normal inspection Eye exam: Present: normal appearance, PERRL, EOMI. Absent: scleral icterus, conjunctival injection, periorbital swelling ENT exam: Present: normal exam, mucous membranes moist Neck exam: Present: normal inspection. Absent: tenderness, meningismus, lymphadenopathy Respiratory exam: Present: normal lung sounds bilaterally. Absent: respiratory distress, wheezes, rales, rhonchi, stridor Cardiovascular Exam: Present: regular rate, normal rhythm, normal heart sounds. Absent: systolic murmur, diastolic murmur, rubs, gallop, clicks GI/Abdominal exam: Present: soft, normal bowel sounds. Absent: distended, tenderness, guarding, rebound, rigid Extremities exam: Present: normal inspection, full ROM, normal capillary refill. Absent: tenderness, pedal edema, joint swelling, calf tenderness Back exam: Present: normal inspection Neurological exam: Present: alert, oriented X3, CN II-XII intact Psychiatric exam: Present: normal affect, normal mood Skin exam: Present: warm, dry, intact, normal color. Absent: rash Course Vital Signs 02/05/19 02/05/19 16:24 19:12 Temperature 98.0 F 97.8 F Pulse Rate 99 70 Respiratory 16 18 Rate Blood Pressure 129/74 108/74 O2 Sat by Pulse 100 100 Oximetry Medical Decision Making - Medical Decision Making Upon arrival the patient is placed into room 26. A thorough history and physical exam was performed. Laboratory studies were conducted. Of note the patient's glucose is 72. Her beta Quant is 2280. Patient is sent over for an ultrasound which demonstrates a small intramural endometrial fluid collection with a mean sac diameter of 0.35 cm. Represent early intrauterine , aembryonic , pseudo-gestational sac of ectopic or nonviable . It does have her dated as 4 weeks, 6 days. I discussed these results with the patient. Her beta Quant is doubling as expected. The patient will have to have repeat blood work drawn in 48 hours. I will provide her with a lab draw slip. She is to return on the come to the outpatient lab. The results will be cc to her INSPECTOR AND CLERK. Patient will also need a repeat ultrasound in 5-7 days. She may establish this through her INSPECTOR AND CLERK. The patient has any new or worsening symptoms she should return to the emergency department sooner. Patient was in agreement with the treatment plan and she was discharged home in stable condition - Lab Data Result diagrams: 02/05/19 17:13 02/05/19 17:13 Lab Results 02/05/19 02/05/19 02/05/19 Range/Units 17:13 17:13 17:13 WBC 7.1 (3.8-10.6) k/uL RBC 4.39 (3.80-5.40) m/uL Hgb 13.4 (11.4-16.0) gm/dL Hct 40.3 (34.0-46.0) % MCV 91.8 (80.0-100.0) fL MCH 30.6 (25.0-35.0) pg MCHC 33.3 (31.0-37.0) g/dL RDW 13.2 (11.5-15.5) % Plt Count 374 (150-450) k/uL Neutrophils % 58 % Lymphocytes % 34 % Monocytes % 5 % Eosinophils % 1 % Basophils % 1 % Neutrophils # 4.1 (1.3-7.7) k/uL Lymphocytes # 2.4 (1.0-4.8) k/uL Monocytes # 0.3 (0-1.0) k/uL Eosinophils # 0.1 (0-0.7) k/uL Basophils # 0.1 (0-0.2) k/uL PT 10.8 (9.0-12.0) sec INR 1.0 (<1.2) APTT 28.2 (22.0-30.0) sec Sodium 140 (137-145) mmol/L Potassium 3.9 (3.5-5.1) mmol/L Chloride 106 (98-107) mmol/L Carbon Dioxide 23 (22-30) mmol/L Anion Gap 11 mmol/L BUN 16 (7-17) mg/dL Creatinine 0.63 (0.52-1.04) mg/dL Est GFR (CKD-EPI)AfAm >90 (>60 ml/min/1.73 sqM) Est GFR (CKD-EPI)NonAf >90 (>60 ml/min/1.73 sqM) Glucose 72 L (74-99) mg/dL Calcium 9.8 (8.4-10.2) mg/dL Total Bilirubin 0.4 (0.2-1.3) mg/dL AST 19 (14-36) U/L ALT 17 (9-52) U/L Alkaline Phosphatase 61 (38-126) U/L Total Protein 7.6 (6.3-8.2) g/dL Albumin 4.7 (3.5-5.0) g/dL HCG, Quant 2280.0 mIU/mL Disposition Clinical Impression: , location unknown Disposition: HOME SELF-CARE Instructions (If sedation given, give patient instructions): (ED) Additional Instructions: You must return to the outpatient lab on the to have your beta Quant drawn. Must also have a repeat ultrasound in 5-7 days to confirm the location of your . Return to the emergency room for any new or worsening symptoms Is patient prescribed a controlled substance at d/c from ED?: No Referrals: Jose Duke MD [Primary Care Provider] - 1-2 days Time of Disposition: 18:50
[2019-02-05 19:13] VITALS: BP 108/74; PULSE 70; RESP 18; TEMP 97.8
== END 2019-02-05 19:12 | disposition home or self-care (01) ==
LOC: EC 16:18
DX: O99.331 Smoking (tobacco) complicating pregnancy, first trimester (principal); F17.200 Nicotine dependence, unspecified, uncomplicated; Z91.048 Other nonmedicinal substance allergy status; Z87.59 Personal history of other complications of pregnancy, childbirth and the puerperium; Z3A.01 Less than 8 weeks gestation of pregnancy
CPT/HCPCS: 36415; 76801; 80053; 84702; 85025; 85610; 85730; 99284

== ENCOUNTER 2019-03-19 13:47 | Emergency (ER) | payer OTHER ==
[2019-03-19 13:54] VITALS: TEMP 98.6
[2019-03-19] MEDS ORDERED: diphenhydrAMINE 50 MG/ML 1 ML VIAL IVP STA (14:57)
[2019-03-19] MEDS ORDERED: METOCLOPRAMIDE 5 MG/ML 2 ML VIAL IVP STA (14:57)
--- NOTE | 2019-03-19 15:14 | ED ---
Headache HPI - General Chief Complaint: Headache Stated Complaint: headache/11 wks preg Time Seen by Provider: 03/19/19 14:44 Mode of arrival: ambulatory Limitations: no limitations - History of Present Illness Initial Comments: 23-year-old female patient presents to the emergency department today for evaluation of headache 4 days. Patient states that Sunday she developed a mild headache and has been worsening since. States she is also having general bodyaches, sweats, hot flashes. Patient is 11 weeks . States she has had some morning sickness with nausea but no vomiting. States she has been able to eat and drink throughout the day. Patient states she has had history of similar type headaches but hasn't been for a long time. She denies any recent head injury. States she did try Tylenol and Sunday without relief. Patient has also been experiencing intermittent sharp stabbing pains around her abdomen. States she is currently being treated for urinary tract infection. Denies any current hematuria, dysuria, urinary frequency, urinary urgency. Denies any abnormal vaginal bleeding or discharge. Patient is with 3 miscarriages. Patient does have history of placenta previa, placental abruption, and labor. Patient denies any recent rash, fever, chills, shortness breath, chest pain, diarrhea, constipation, back pain, numbness, tingling, dizziness, weakness, headache, visual changes, or any other complaints. - Related Data Home Medications Medication Instructions Recorded Confirmed Pnv,Calcium 72/Iron/Folic Acid 1 tab PO HS 06/11/17 02/05/19 [ Plus Tablet] Allergies Allergy/AdvReac Type Severity Reaction Status Date / Time adhesive tape Allergy Rash/Hives Verified 03/19/19 13:54 Review of Systems ROS Statement: Those systems with pertinent positive or pertinent negative responses have been documented in the HPI. ROS Other: All systems not noted in ROS Statement are negative. Past Medical History Past Medical History: No Reported History Additional Past Medical History / Comment(s): lump in right breast, UTI, hypotension History of Any Multi-Drug Resistant Organisms: None Reported Past Surgical History: Orthopedic Surgery Additional Past Surgical History / Comment(s): Right growth plate, double lumpectomy removed Additional Past Anesthesia/Blood Transfusion Reaction / Comment(s): STATES HE HAD HYPOTENSION AFTER HER EPIDURAL, WHEN SHE DELIVERED HER DAUGHTER. Past Psychological History: Anxiety Smoking Status: Current some day smoker Past Alcohol Use History: None Reported Past Drug Use History: Marijuana - Past Family History Father Family Medical History: Cancer Additional Family Medical History / Comment(s): LIVER CANCER. Mother Family Medical History: Thyroid Disorder General Exam Limitations: no limitations General appearance: alert, in no apparent distress, other (This is a well- developed, well-nourished adult female patient in no acute distress. Vital signs upon presentation are temperature 98.6F, pulse 99, respirations 20, blood pressure 110/67, pulse ox 99% on room air.) Eye exam: Present: normal appearance, PERRL, EOMI. Absent: scleral icterus, conjunctival injection, periorbital swelling ENT exam: Present: normal exam, normal oropharynx, mucous membranes moist Respiratory exam: Present: normal lung sounds bilaterally. Absent: respiratory distress, wheezes, rales, rhonchi, stridor Cardiovascular Exam: Present: regular rate, normal rhythm, normal heart sounds. Absent: systolic murmur, diastolic murmur, rubs, gallop, clicks GI/Abdominal exam: Present: soft, normal bowel sounds. Absent: distended, tenderness, guarding, rebound, rigid Neurological exam: Present: alert, oriented X3, CN II-XII intact, other (Strength in all 4 extremities is 5/5.) Psychiatric exam: Present: normal affect, normal mood Skin exam: Present: warm, dry, intact, normal color. Absent: rash Course Vital Signs 03/19/19 03/19/19 13:52 16:55 Temperature 98.6 F Pulse Rate 99 66 Respiratory 20 18 Rate Blood Pressure 110/67 123/78 O2 Sat by Pulse 99 99 Oximetry Medical Decision Making - Medical Decision Making 23-year-old female patient presents to the emergency department today for evaluation of headache 4 days and intermittent abdominal pain. She denies abnormal vaginal bleeding or discharge. Physical examination revealed soft nontender abdomen. Patient was given IV with fluids, Reglan, Benadryl as well as Tylenol. Patient headache did improve. Ultrasound showed a viable intrauterine with evidence for 2 small areas of subchorionic hemorrhage. Did discuss the findings and results with the patient is instructed to follow-up with her [facility] for recheck as soon as possible. Return parameters were discussed in detail. She verbalizes understanding and agrees with this plan. - Lab Data Lab Results 03/19/19 Range/Units 15:03 Urine Color Yellow Urine Appearance Cloudy H (Clear) Urine pH 6.5 (5.0-8.0) Ur Specific [place] 1.019 (1.001-1.035) Urine Protein Negative (Negative) Urine Glucose (UA) Negative (Negative) Urine Ketones Negative (Negative) Urine Blood Negative (Negative) Urine Nitrite Negative (Negative) Urine Bilirubin Negative (Negative) Urine Urobilinogen <2.0 (<2.0) mg/dL Ur Leukocyte Esterase Negative (Negative) Urine WBC 7 H (0-5) /hpf Urine WBC Clumps Moderate H (None) /hpf Urine Yeast (Budding) Many H (None) /hpf - Radiology Data Radiology results: report reviewed Ultrasound of the fetus was obtained. Report was reviewed in its entirety. Impression by Dr. Bonilla shows focal abnormal contour the left lateral uterus likely relates to myometrial contraction. There are 2 additional hypoechoic areas measuring 1.6 cm and 2.7 cm related to multifocal subchorionic hemorrhage. Single live intrauterine is seen at the [place] sonographic age of 11 weeks and 4 days mastoid delivery of 10/04/2019, concordant with physician is [facility] . Disposition Clinical Impression: Acute headache, Subchorionic hemorrhage Disposition: HOME SELF-CARE Condition: Good Instructions (If sedation given, give patient instructions): Acute Headache (ED), Subchorionic Hemorrhage (ED) Additional Instructions: Rest. Increase fluids. Maintain pelvic rest, no intercourse or insertion of anything into the vagina until cleared by your OBGYN. Follow up with your OBGYN for recheck as soon as possible. Return to the emergency department for any new, worsening, or concerning symptoms. Is patient prescribed a controlled substance at d/c from ED?: No Referrals: Jose Duke MD [Primary Care Provider] - 1-2 days Time of Disposition: 16:38
[2019-03-19 15:45] LABS: Appearance,Urine Cloudy (Clear); Bilirubin,Urine Negative (Negative); Blood,Urine Negative (Negative); Budding Yeast,Urine Many /hpf; Color,Urine Yellow; Glucose,Urine (UA) Negative (Negative); Ketones,Urine Negative (Negative); Leukocyte Esterase,Urine Negative (Negative); Nitrite,Urine Negative (Negative); PH, Urine 6.5 (5.0-8.0); Protein,Urine Negative (Negative); Specific Gravity,Urine 1.019 (1.001-1.035); Urobilinogen,Urine <2.0 mg/dL (<2.0); WBC,Urine 7 /hpf (0-5)
--- NOTE | 2019-03-19 16:03 | US ---
EXAMINATION TYPE: Transabdominal DATE OF EXAM: 03/19/2019 3:51 PM COMPARISON: US CLINICAL HISTORY: Abd pain. Abdominal pain x 5 days. Hx placental abruption, labor, cervical incompetence, ovarian cyst. . EXAM PERFORMED: Transabdominal (TA) EXAM MEASUREMENTS: GESTATIONAL AGE / DATING Physician Established: (11 weeks/1 day) EDC: 10/07/2019 Dates by LMP: (11 weeks/1 day) EDC: 10/07/2019 Dates by First Scan: (10 weeks/6 days) EDC: 10/09/2019 Dates by Current Scan for: (11 weeks/4 days) EDC: 10/04/2019 MATERNAL ANATOMY Uterus: 11.1 x 10.1 x 8.7 cm. Right Ovary: 3.1 x 1.6 x 1.8 cm. Left Ovary: 3.6 x 2.9 x 1.9 cm. Post CDS / Adnexa: appear wnl Presence of free fluid: none seen Presence of corpus luteal cyst: Area of mixed echogenicity and peripheral vascularity seen within the left ovary measurin.8 x 1.8 x 1.6 cm. Presence of subchorionic bleed: Hypoechoic area seen adjacent to and to the left of the gestational s ac measurin.7 x 0.8 x 1.0 cm. Hypoechoic area seen adjacent to and to the right of the gestational sac measurin.6 x 1.1 x 0.9 c m. Contour abnormality of the left uterus appears decreased later in the examination and is likely r elated to uterine contraction. GESTATION / SURVEY CRL: 4.78 cm. (11 weeks/4 days) Yolk Sac (normal less than 6mm): not seen Heart Rate: 159 bpm Rhythm: Normal IUP: Live IUP Nuchal Translucency 10-14wks (normal less than 3mm): 1 mm. Date of LMP: 12/31/2018 Beta HcG (if available): not available IMPRESSION: Focal abnormal contour of the left lateral uterus likely relates to myometrial contractio n. There are 2 additional hypoechoic areas measuring 1.6 cm and 2.7 cm related to multifocal subchori onic hemorrhage. Single live intrauterine is seen with a calculated sonographic age of 11 w eeks and 4 days and estimated date of delivery of 10/04/2019, concordant with physician established da dwain.
[2019-03-19 16:55] VITALS: BP 123/78; PULSE 66; RESP 18
== END 2019-03-19 16:54 | disposition home or self-care (01) ==
LOC: EC 13:47
DX: O20.8 Other hemorrhage in early pregnancy (principal); O99.89 Other specified diseases and conditions complicating pregnancy, childbirth and the puerperium; R51 Headache; R11.0 Nausea; R10.9 Unspecified abdominal pain; O99.331 Smoking (tobacco) complicating pregnancy, first trimester; F17.200 Nicotine dependence, unspecified, uncomplicated; Z91.048 Other nonmedicinal substance allergy status; Z87.59 Personal history of other complications of pregnancy, childbirth and the puerperium; Z3A.11 11 weeks gestation of pregnancy
CPT/HCPCS: 81001; 76813; 76801; 99284; 96374; 96375; J1200; J2765

== ENCOUNTER 2019-05-06 15:54 | Emergency (ER) | payer OTHER ==
[2019-05-06 16:19] VITALS: RESP 16
[2019-05-06] MEDS ORDERED: diphenhydrAMINE 50 MG/ML 1 ML VIAL IVP STA (16:28)
[2019-05-06] MEDS ORDERED: METOCLOPRAMIDE 5 MG/ML 2 ML VIAL IVP STA (16:28)
[2019-05-06] MEDS ORDERED: SODIUM CHLORIDE 0.9% 2,000 ML IV STA (16:28)
--- NOTE | 2019-05-06 16:30 | ED ---
General Adult HPI - General Chief complaint: Nausea/Vomiting/Diarrhea Stated complaint: Vomiting, 18 weeks Time Seen by Provider: 05/06/19 16:15 Source: patient, RN notes reviewed Mode of arrival: ambulatory Limitations: no limitations - History of Present Illness Initial comments: 22-year-old female presents emergency Department chief complaint of nausea vomiting and dehydration. Patient states she is 18 weeks . Patient states she started vomits morning has been unable to keep anything down states that she has some mild epigastric discomfort no lower abdominal pain no bleeding increased vaginal discharge. Patient states that she is A3 currently seen Dr. Seymour. Patient has no dysuria no hematuria. - Related Data Home Medications Medication Instructions Recorded Confirmed Pnv,Calcium 72/Iron/Folic Acid 1 tab PO HS 06/11/17 02/05/19 [ Plus Tablet] Allergies Allergy/AdvReac Type Severity Reaction Status Date / Time adhesive tape Allergy Rash/Hives Verified 03/19/19 13:54 Review of Systems ROS Statement: Those systems with pertinent positive or pertinent negative responses have been documented in the HPI. ROS Other: All systems not noted in ROS Statement are negative. Past Medical History Past Medical History: No Reported History Additional Past Medical History / Comment(s): lump in right breast, UTI, hypotension History of Any Multi-Drug Resistant Organisms: None Reported Past Surgical History: Orthopedic Surgery Additional Past Surgical History / Comment(s): Right growth plate, double lumpectomy removed Additional Past Anesthesia/Blood Transfusion Reaction / Comment(s): STATES HE HAD HYPOTENSION AFTER HER EPIDURAL, WHEN SHE DELIVERED HER DAUGHTER. Past Psychological History: Anxiety Smoking Status: Former smoker Past Alcohol Use History: None Reported Past Drug Use History: Marijuana - Past Family History Father Family Medical History: Cancer Additional Family Medical History / Comment(s): LIVER CANCER. Mother Family Medical History: Thyroid Disorder General Exam Limitations: no limitations General appearance: alert, in no apparent distress Head exam: Present: atraumatic, normocephalic, normal inspection Eye exam: Present: normal appearance, PERRL, EOMI. Absent: scleral icterus, conjunctival injection, periorbital swelling ENT exam: Present: mucous membranes dry Neck exam: Present: normal inspection, full ROM. Absent: tenderness, meningismus, lymphadenopathy Respiratory exam: Present: normal lung sounds bilaterally. Absent: respiratory distress, wheezes, rales, rhonchi, stridor Cardiovascular Exam: Present: regular rate, normal rhythm, normal heart sounds. Absent: systolic murmur, diastolic murmur, rubs, gallop, clicks GI/Abdominal exam: Present: soft, normal bowel sounds. Absent: distended, tenderness, guarding, rebound, rigid Back exam: Absent: CVA tenderness (R), CVA tenderness (L) Neurological exam: Present: alert Skin exam: Present: warm, dry, intact, normal color. Absent: rash Course Vital Signs 05/06/19 16:14 Temperature 97.3 F L Pulse Rate 98 Respiratory 16 Rate Blood Pressure 102/68 O2 Sat by Pulse 100 Oximetry Medical Decision Making - Medical Decision Making Patient was well hydrated with 2 L of fluids, labs are essentially unremarkable. Patient feels greatly improved at this time patient will be discharged return parameters were discussed. - Lab Data Result diagrams: 05/06/19 16:35 05/06/19 16:35 Lab Results 05/06/19 05/06/19 05/06/19 Range/Units 16:35 16:35 17:08 WBC 14.2 H (3.8-10.6) k/uL RBC 4.08 (3.80-5.40) m/uL Hgb 12.9 (11.4-16.0) gm/dL Hct 38.1 (34.0-46.0) % MCV 93.4 (80.0-100.0) fL MCH 31.5 (25.0-35.0) pg MCHC 33.8 (31.0-37.0) g/dL RDW 13.4 (11.5-15.5) % Plt Count 342 (150-450) k/uL Neutrophils % 94 % Lymphocytes % 3 % Monocytes % 2 % Eosinophils % 1 % Basophils % 0 % Neutrophils # 13.3 H (1.3-7.7) k/uL Lymphocytes # 0.5 L (1.0-4.8) k/uL Monocytes # 0.2 (0-1.0) k/uL Eosinophils # 0.1 (0-0.7) k/uL Basophils # 0.0 (0-0.2) k/uL Sodium 139 (137-145) mmol/L Potassium 4.1 (3.5-5.1) mmol/L Chloride 109 H (98-107) mmol/L Carbon Dioxide 24 (22-30) mmol/L Anion Gap 6 mmol/L BUN 14 (7-17) mg/dL Creatinine 0.44 L (0.52-1.04) mg/dL Est GFR (CKD-EPI)AfAm >90 (>60 ml/min/1.73 sqM) Est GFR (CKD-EPI)NonAf >90 (>60 ml/min/1.73 sqM) Glucose 87 (74-99) mg/dL Calcium 9.0 (8.4-10.2) mg/dL Total Bilirubin 0.6 (0.2-1.3) mg/dL AST 21 (14-36) U/L ALT 10 (4-34) U/L Alkaline Phosphatase 61 (38-126) U/L Total Protein 6.8 (6.3-8.2) g/dL Albumin 3.9 (3.5-5.0) g/dL Amylase 71 (30-110) U/L Lipase 115 (23-300) U/L Urine Color Yellow Urine Appearance Cloudy H (Clear) Urine pH 6.5 (5.0-8.0) Ur Specific [place] 1.023 (1.001-1.035) Urine Protein Trace H (Negative) Urine Glucose (UA) Negative (Negative) Urine Ketones Negative (Negative) Urine Blood Negative (Negative) Urine Nitrite Negative (Negative) Urine Bilirubin Negative (Negative) Urine Urobilinogen <2.0 (<2.0) mg/dL Ur Leukocyte Esterase Small H (Negative) Urine RBC 1 (0-5) /hpf Urine WBC 3 (0-5) /hpf Ur Squamous Epith Cells 21 H (0-4) /hpf Urine Bacteria Rare H (None) /hpf Urine Mucus Many H (None) /hpf Disposition Clinical Impression: Dehydration, Nausea & vomiting Disposition: HOME SELF-CARE Condition: Stable Instructions (If sedation given, give patient instructions): Acute Nausea and Vomiting (ED) Additional Instructions: Please return to the Emergency Department if symptoms worsen or any other co ncerns. Is patient prescribed a controlled substance at d/c from ED?: No Referrals: Jose Duke MD [Primary Care Provider] - 1-2 days Time of Disposition: 17:27
[2019-05-06 16:59] LABS: Basophils % (A) 0 %; Eosinophils # (A) 0.1 k/uL (0-0.7); Eosinophils % (A) 1 %; HCT 38.1 % (34.0-46.0); HGB 12.9 gm/dL (11.4-16.0); Lymphocytes # (A) 0.5 k/uL (1.0-4.8); Lymphocytes % (A) 3 %; MCH 31.5 pg (25.0-35.0); MCHC 33.8 g/dL (31.0-37.0); MCV 93.4 fL (80.0-100.0); Mean Platelet Volume 7.6; Monocytes # (A) 0.2 k/uL (0-1.0); Monocytes % (A) 2 %; Neutrophils # (A) 13.3 k/uL (1.3-7.7); Neutrophils % (A) 94 %; Platelet Count 342 k/uL (150-450); RBC 4.08 m/uL (3.80-5.40); RDW 13.4 % (11.5-15.5); WBC 14.2 k/uL (3.8-10.6)
[2019-05-06 17:01] LABS: ALT 10 U/L (4-34); AST 21 U/L (14-36); African American GFR (CKD) >90 (>60 ml/min/1.73 sqM); Albumin 3.9 g/dL (3.5-5.0); Alkaline Phosphatase 61 U/L (38-126); Amylase 71 U/L (30-110); Anion Gap 6 mmol/L; Blood Urea Nitrogen 14 mg/dL (7-17); Carbon Dioxide 24 mmol/L (22-30); Chloride 109 mmol/L (98-107); Glucose 87 mg/dL (74-99); Non-African American GFR(CKD) >90 (>60 ml/min/1.73 sqM); Potassium 4.1 mmol/L (3.5-5.1); Sodium 139 mmol/L (137-145); Total Bilirubin 0.6 mg/dL (0.2-1.3); Total Protein 6.8 g/dL (6.3-8.2)
[2019-05-06 17:18] LABS: Appearance,Urine Cloudy (Clear); Bacteria,Urine Rare /hpf; Bilirubin,Urine Negative (Negative); Blood,Urine Negative (Negative); Color,Urine Yellow; Glucose,Urine (UA) Negative (Negative); Ketones,Urine Negative (Negative); Leukocyte Esterase,Urine Small (Negative); Mucus,Urine Many /hpf; Nitrite,Urine Negative (Negative); PH, Urine 6.5 (5.0-8.0); Protein,Urine Trace (Negative); RBC,Urine 1 /hpf (0-5); Specific Gravity,Urine 1.023 (1.001-1.035); Squamous Epithelial Cell,Urine 21 /hpf (0-4); Urobilinogen,Urine <2.0 mg/dL (<2.0); WBC,Urine 3 /hpf (0-5)
[2019-05-06 18:09] VITALS: BP 101/67; PULSE 75; TEMP 98
== END 2019-05-06 18:09 | disposition home or self-care (01) ==
LOC: EC 15:54
DX: O21.9 Vomiting of pregnancy, unspecified (principal); O99.282 Endocrine, nutritional and metabolic diseases complicating pregnancy, second trimester; E86.0 Dehydration; Z91.048 Other nonmedicinal substance allergy status; Z3A.18 18 weeks gestation of pregnancy; Z87.891 Personal history of nicotine dependence
CPT/HCPCS: 36415; 80053; 82150; 83690; 85025; 81001; 99284; 96374; 96375; 96361; J1200; J2765

== ENCOUNTER 2021-07-31 04:06 | Emergency (ER) | payer OTHER ==
[2021-07-31 04:53] VITALS: BP 131/85; PULSE 99; RESP 20; TEMP 98
--- NOTE | 2021-07-31 06:39 | ED ---
General Adult HPI - General Chief complaint: Skin/Abscess/Foreign Body Stated complaint: Rash Time Seen by Provider: 07/31/21 05:37 Source: patient, RN notes reviewed Mode of arrival: ambulatory Limitations: no limitations - History of Present Illness Initial comments: 25-year-old female presents emergency Department with chief complaint RASH. She states that primary increase in the last couple days but states that she's had some on and off symptoms for weeks. She states she was seen at [facility] and was asked if she uses heroin she denied that stating that they just discharged told to follow-up dermatology. She states she has open sores just noticed that she had some purulent drainage from her nose. Patient states she feels like she has a staph infection. Patient denies any fevers or chills. She states that her skin is sensitive around the areas, red swollen sores. - Related Data Home Medications Medication Instructions Recorded Confirmed Pnv,Calcium 72/Iron/Folic Acid 1 tab PO HS 06/11/17 02/05/19 [ Plus Tablet] Previous Rx's Medication Instructions Recorded Clindamycin HCl 300 mg PO Q6HR #40 cap 07/31/21 Allergies Allergy/AdvReac Type Severity Reaction Status Date / Time adhesive tape Allergy Rash/Hives Verified 07/31/21 04:53 Review of Systems ROS Statement: Those systems with pertinent positive or pertinent negative responses have been documented in the HPI. ROS Other: All systems not noted in ROS Statement are negative. Past Medical History Past Medical History: No Reported History Additional Past Medical History / Comment(s): lump in right breast, UTI, hypotension, Sepsis History of Any Multi-Drug Resistant Organisms: None Reported Past Surgical History: Orthopedic Surgery Additional Past Surgical History / Comment(s): Right growth plate, double lumpectomy removed Additional Past Anesthesia/Blood Transfusion Reaction / Comment(s): STATES HE HAD HYPOTENSION AFTER HER EPIDURAL, WHEN SHE DELIVERED HER DAUGHTER. Past Psychological History: No Psychological Hx Reported Smoking Status: Vaper Past Alcohol Use History: None Reported Past Drug Use History: Marijuana - Past Family History Father Family Medical History: Cancer Additional Family Medical History / Comment(s): LIVER CANCER. Mother Family Medical History: Thyroid Disorder General Exam General appearance: alert, in no apparent distress Head exam: Present: atraumatic, normocephalic, normal inspection Eye exam: Present: normal appearance, PERRL, EOMI. Absent: scleral icterus, co njunctival injection, periorbital swelling ENT exam: Present: mucous membranes moist Respiratory exam: Present: normal lung sounds bilaterally. Absent: respiratory distress, wheezes, rales, rhonchi, stridor Cardiovascular Exam: Present: regular rate, normal rhythm, normal heart sounds. Absent: systolic murmur, diastolic murmur, rubs, gallop, clicks Neurological exam: Present: alert, oriented X3 Skin exam: Present: warm, dry, intact, normal color, rash (Multiple sores and lower extremity, and left-sided neck, arms open erythematous) Course Vital Signs 07/31/21 04:46 Temperature 98 F Pulse Rate 99 Respiratory 20 Rate Blood Pressure 131/85 O2 Sat by Pulse 100 Oximetry Medical Decision Making - Medical Decision Making Patient appears to have staph infection, concern for MRSA as she has nasal symptoms. Patient will be placed on clindamycin she'll follow-up with dentalgia, piece. Return for worsening change in symptoms. Disposition Clinical Impression: Staphylococcal infection of skin Disposition: HOME SELF-CARE Condition: Stable Instructions (If sedation given, give patient instructions): Cellulitis (ED) Additional Instructions: Please return to emergency department for any worsening symptoms or any other concerns Prescriptions: Clindamycin HCl 300 mg PO Q6HR #40 cap Is patient prescribed a controlled substance at d/c from ED?: No Referrals: None,Stated [Primary Care Provider] - 1-2 days Time of Disposition: 06:39
== END 2021-07-31 07:15 | disposition home or self-care (01) ==
LOC: EC 04:06
DX: A49.02 Methicillin resistant Staphylococcus aureus infection, unspecified site (principal); F17.209 Nicotine dependence, unspecified, with unspecified nicotine-induced disorders; Z91.048 Other nonmedicinal substance allergy status
CPT/HCPCS: 99283